=== PATIENT | male | born 1960 | race Two or more races ===

== ENCOUNTER 2017-04-01 17:58 | Emergency (ER) | payer OTHER ==
[2017-04-01 20:07] VITALS: BP 131/83
== END 2017-04-01 20:07 | disposition home or self-care (01) ==
LOC: ED 17:58
DX: S13.4XXA Sprain of ligaments of cervical spine, initial encounter (principal); S70.02XA Contusion of left hip, initial encounter; S80.01XA Contusion of right knee, initial encounter; S20.219A Contusion of unspecified front wall of thorax, initial encounter; S09.90XA Unspecified injury of head, initial encounter; V49.49XA Driver injured in collision with other motor vehicles in traffic accident, initial encounter; W22.12XA Striking against or struck by front passenger side automobile airbag, initial encounter; Y93.89 Activity, other specified; Y99.8 Other external cause status; Y92.89 Other specified places as the place of occurrence of the external cause